=== PATIENT | male | born 1990 | race Hispanic/Latino ===

== ENCOUNTER 2017-07-07 12:48 | Emergency (ER) | payer OTHER ==
[2017-07-07 12:56] VITALS: RESP 16
[2017-07-07] MEDS ORDERED: Sodium Chloride 0.9% 1,000 ML IV STA (14:07)
--- NOTE | 2017-07-07 14:11 | ED PDOC ---
HPI: Chest Pain Time Seen by Provider: 07/07/17 13:18 Chief Complaint (Nursing): Palpitations Chief Complaint (Provider): Palpitations History Per: Patient History/Exam Limitations: no limitations Onset/Duration Of Symptoms: Days (x1) Current Symptoms Are (Timing): Better Additional Complaint(s): Gapser France is a 27 year old male with previous medical history of aortic stenosis, who presents to the emergency department with a complaint of heart palpitations associates with shortness of breath and minimal chest pain upon waking up this morning. Denied fever, chills, cough, leg pain or swelling. Patient stated he had a recent 2 hour travel this week and stopped aortic stenosis treatment 10 years ago because he was medically cleared. He also reported palpitations are currently getting better but still present. PMD: none provided Past Medical History Reviewed: Historical Data, Nursing Documentation, Vital Signs Vital Signs: Last Vital Signs Temp 98.3 F 07/07/17 12:55 Pulse 93 H 07/07/17 14:11 Resp 16 07/07/17 12:55 BP 165/97 H 07/07/17 12:55 Pulse Ox 100 07/07/17 16:17 - Medical History PMH: No Chronic Diseases - Surgical History Surgical History: No Surg Hx - Family History Family History: States: Unknown Family Hx - Social History Current smoker - smoking cessation education provided: No Alcohol: Occasional Drugs: Denies - Allergies Allergies/Adverse Reactions: Allergies Allergy/AdvReac Type Severity Reaction Status Date / Time No Known Allergies Allergy Verified 07/07/17 12:55 Review of Systems ROS Statement: Except As Marked, All Systems Reviewed And Found Negative Constitutional: Negative for: Fever, Chills Cardiovascular: Positive for: Chest Pain (minimal), Palpitations Respiratory: Positive for: Shortness of Breath Musculoskeletal: Negative for: Leg Pain (or swelling) Physical Exam - Reviewed Nursing Documentation Reviewed: Yes Vital Signs Reviewed: Yes - Physical Exam Appears: Positive for: Well, Non-toxic, No Acute Distress Head Exam: Positive for: ATRAUMATIC, NORMAL INSPECTION, NORMOCEPHALIC Skin: Positive for: Normal Color Cardiovascular/Chest: Positive for: Regular Rate, Rhythm. Negative for: Chest Non Tender, Murmur Respiratory: Positive for: Normal Breath Sounds. Negative for: Decreased Breath Sounds, Crackles, Rales, Rhonchi, Wheezing, Respiratory Distress Gastrointestinal/Abdominal: Positive for: Normal Exam, Bowel Sounds, Soft. Negative for: Tenderness Extremity: Positive for: Normal ROM. Negative for: Tenderness, Pedal Edema, Calf Tenderness, Deformity Neurologic/Psych: Positive for: Alert, Oriented - Laboratory Results Result Diagrams: 07/07/17 13:55 07/07/17 13:55 - ECG O2 Sat by Pulse Oximetry: 100 (RA) Pulse Ox Interpretation: Normal - Radiology X-Ray: Read By Radiologist - Physician Consult Information Time Consulting Physican Contacted: 16:20 Physician Contacted: Radames Ignacio Outcome Of Conversation: Labs, EKG and CXR reviewed. Agrees with discharge home to follow-up with Cardio clinic. Medical Decision Making Medical Decision Making: Initial Impression: Heart palpitations Initial Plan: * EKG * ProBNP * CMP * Drug screen, urine * TSH * Troponin I * Urine dipstick * CBC * D Dimer * PTT * PT * CXR * NS 1,000ml IV per 1,000mls/hr * Urinalysis Time: 1410 --UA: positive for ketones. Fluids ordered. Time: 1609 --CXR FINDINGS: LUNGS: No active pulmonary disease. PLEURA: No significant pleural effusion identified. No pneumothorax apparent. CARDIOVASCULAR: Normal. OSSEOUS STRUCTURES: No significant abnormalities. VISUALIZED UPPER ABDOMEN: Normal. OTHER FINDINGS: None. IMPRESSION: No acute cardiopulmonary disease identified. --Copy of labs and EKG given to patient. Scribe Attestation: Documented by Jody Osuna, acting as a scribe for Helena Huizar MD. Provider Scribe Attestation: All medical record entries made by the Scribe were at my direction and personally dictated by me. I have reviewed the chart and agree that the record accurately reflects my personal performance of the history, physical exam, medical decision making, and the department course for this patient. I have also personally directed, reviewed, and agree with the discharge instructions and disposition. Disposition - Clinical Impression Clinical Impression: Palpitations - Disposition Disposition: Routine/Home Disposition Time: 16:20 Condition: STABLE Instructions: Palpitations (ED), Aortic Stenosis (ED) Forms: [facility] (Arabic)
[2017-07-07 14:12] LABS: BASO % 0.4 % (0.0-2.0); HEMATOCRIT 46.5 % (35.0-51.0); LYMPH # 1.5 K/uL (1.0-4.3); LYMPH % 13.4 % (20.0-40.0); MEAN CELL VOLUME 93.4 fl (80.0-94.0); MEAN CORPUSCULAR HEMOGLOBIN 32.2 pg (27.0-31.0); MEAN CORPUSCULAR HGB CONC 34.4 g/dL (33.0-37.0); MEAN PLATELET VOLUME 7.8 fl (7.2-11.7); MONO # 0.6 K/uL (0.0-0.8); MONO % 5.3 % (0.0-10.0); NEUT # 8.9 K/uL (1.8-7.0); NEUT % 80.9 % (50.0-75.0); RED CELL DISTRIBUTION WIDTH 12.2 % (11.5-14.5); WHITE BLOOD COUNT 11.1 K/uL (4.8-10.8)
[2017-07-07 14:23] LABS: ALB/GLOB RATIO 1.8 (1.0-2.1); ALKALINE PHOSPHATASE 58 U/L (38-126); ALT/SGPT 35 U/L (21-72); AST/SGOT 44 U/L (17-59); BILIRUBIN,TOTAL 1.6 mg/dl (0.2-1.3); BLOOD UREA NITROGEN 20 mg/dl (9-20); CALCIUM 9.8 mg/dL (8.4-10.2); CARBON DIOXIDE 21 mmol/L (22-30); CHLORIDE 94 mmol/L (98-107); GFR AFRICAN-AMERICAN > 60; GLUCOSE,RANDOM 125 mg/dL (75-110); POTASSIUM 4.6 MMOL/L (3.6-5.0); SODIUM 131 mmol/l (132-148); TOTAL PROTEIN 7.9 G/DL (6.3-8.2)
[2017-07-07 14:38] LABS: PARTIAL THROMBOPLASTIN TIME 27.2 Seconds (25.6-37.1)
[2017-07-07 14:48] LABS: THYROID STIMULATING HORMONE 0.96 mIU/ML (0.46-4.68)
[2017-07-07 15:03] LABS: RBC URINE 1 /hpf (0-3); URINE BILIRUBIN NEGATIVE (NEGATIVE); URINE BLOOD NEGATIVE (NEGATIVE); URINE COLOR STRAW (YELLOW); URINE GLUCOSE (UA) NEG (Normal); URINE KETONE 20 mg/dL (NEGATIVE); URINE LEUKOCYTE ESTERASE NEG Leu/uL (Negative); URINE PROTEIN NEGATIVE (NEGATIVE); URINE UROBILINOGEN 0.2-1.0 mg/dL (0.2-1.0); WBC URINE < 1 /hpf (0-5)
--- NOTE | 2017-07-07 16:11 | RAD ---
HISTORY: Palpitations COMPARISON: No prior. TECHNIQUE: Chest PA and lateral FINDINGS: LUNGS: No active pulmonary disease. PLEURA: No significant pleural effusion identified. No pneumothorax apparent. CARDIOVASCULAR: Normal. OSSEOUS STRUCTURES: No significant abnormalities. VISUALIZED UPPER ABDOMEN: Normal. OTHER FINDINGS: None. IMPRESSION: No acute cardiopulmonary disease identified.
[2017-07-07 17:03] VITALS: BP 147/82; PULSE 81; TEMP 98; O2SAT 99
--- NOTE | 2017-07-08 08:39 | CARD ---
APPROVED REPORT EKG Measurement Heart [id number] <Conclusion> Normal sinus rhythm Possible Left atrial enlargement Voltage criteria for LVH (Normal variant??) Abnormal ECG
== END 2017-07-07 17:03 | disposition home or self-care (01) ==
LOC: H.ER 12:48
DX: R00.2 Palpitations (principal); I35.0 Nonrheumatic aortic (valve) stenosis
CPT/HCPCS: 71020; 80053; 80324; 80345; 80346; 80349; 80353; 80358; 80361; 81003; 83880; 83992; 84443; 84484; 85025; 85378; 85610; 85730; 93005; 99284; J7040

== ENCOUNTER 2017-12-03 18:17 | Emergency (ER) | payer OTHER ==
[2017-12-03 19:23] VITALS: BP 124/65; PULSE 68; RESP 18; TEMP 97.4; O2SAT 100
== END 2017-12-03 19:21 | disposition left against medical advice (07) ==
LOC: H.ER 18:17
DX: Z02.89 Encounter for other administrative examinations (principal)